=== PATIENT | female | born 1955 | race Caucasian/White ===

== ENCOUNTER 2022-05-17 11:48 | Emergency (ER) | payer OTHER, SELFPAY ==
[2022-05-17] VITALS (10 sets, daily range): BP systolic 104–122; BP diastolic 65–78; PULSE 68–84; RESP 11–21; O2SAT 96–100
--- NOTE | 2022-05-17 11:45 | DI.CT_ITS ---
Exam(s) CT HEAD CERVICAL SPINE WO EXAM: CT HEAD CERVICAL SPINE WO COMPARISON: No exams were available for comparison FINDINGS: CT examination of the cervical spine was performed without contrast administration. There are moderate degenerative changes of the cervical spine most marked at C4-5 and C5-6. There is no evidence of acute cervical spine fracture or dislocation. Intervertebral disc spaces are well maintained. Tracheolaryngeal structures appear intact. No cervical mass or adenopathy. Noncontrast cranial CT was performed. Ventricular system is normal in appearance. There may be slight cerebral atrophy. No evidence of acute intracranial hemorrhage, mass effect, or midline shift. No calvarial fracture. The orbital and temporal bone structures appear intact. Visualized mastoid air cells and paranasal sinuses appear clear. IMPRESSION: No evidence of acute cervical spine injury. No evidence of acute intracranial injury. RADIATION DOSE DELIVERED: 1,233.01mGy.cm Total DLP 1,233.01mGy.cm Total DLP !Error CTDIvol DATA REPOSITORY: All CT scans at this facility are submitted to the National Radiology Data Registry (NRDR) Dose Index Registry (DIR) with the [employer] (ACR). RADIATION OPTIMIZATION: All CT scans at this facility use at least one of these dose optimization te chniques: automated exposure control; mA and/or kV adjustment per patient size (includes targeted exa ms where dose is matched to clinical indication); or iterative reconstruction.
--- NOTE | 2022-05-17 11:45 | RT.EKG_ITS ---
APPROVED REPORT Exam: Resting ECG Reason for Exam: CHEST PAIN Patient Location: E HR:70 bpm ECG Measurements Heart Rate 70 AXIS OK 167 P 44 QRSd 80 QRS 41 QT 419 T 35 QTc 452 Conclusion Sinus rhythm...normal P axis, V-rate 60- 99
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
[2022-05-17 12:28] LABS: Abs Immature Grans 0.05 10^3/uL (0.0-0.06); Absolute Basophil Count 0.03 10^3/uL (0.0-0.2); Absolute Eosinophil Count 0.07 10^3/uL (0.0-0.7); Absolute Lymphocyte Count 3.08 10^3/uL (1.2-3.4); Absolute Monocyte Count 0.56 10^3/uL (0.1-0.8); Absolute Neutrophil Count 4.47 10^3/uL (1.2-6.7); Basophils % 0.4; Eosinophils % 0.8; HCT 35.4 % (36.0-46.0); HGB 11.7 g/dL (11.2-15.7); Immature Grans % 0.6; Lymphocytes % 37.3; MCH 32.9 pg (27.0-33.0); MCHC 33.1 % (32.0-36.0); MCV 99 fL (80-95); MPV 10.4 fL (8.0-11.0); Monocytes % 6.8; Neutrophils % 54.1; Platelet Count 222 10^3/uL (130-400); RBC 3.56 10^6/uL (3.93-5.22); RDW-SD 47.6 fL; WBC 8.26 10^3/uL (4.4-10.8)
[2022-05-17 12:46] LABS: ALT 193 U/L (14-59); AST 237 U/L (15-37); Albumin 3.5 g/dL (3.4-5.0); Alkaline Phosphatase 49 U/L (46-116); Anion Gap 8.9 mmol/L (3-11); BUN 19 mg/dL (7-18); Bilirubin, Total 0.3 mg/dL (0.2-1.0); CO2 27.1 mmol/L (21.0-32.0); CREATININE 0.8 mg/dL (0.55-1.02); Calcium 8.8 mg/dL (8.5-10.1); Chloride 104 mmol/L (98-107); Glucose 110 mg/dL (74-106); Lipase 170 U/L (73-393); Magnesium 1.9 mg/dL (1.8-2.4); Potassium 3.7 mmol/L (3.5-5.1); Sodium 140 mmol/L (136-145); Total Protein 7.2 g/dL (6.4-8.2); Troponin I < 50 ng/L (<or=60)
--- NOTE | 2022-05-17 13:25 | DI.CT_ITS ---
Exam(s) CT THORACIC LUMBAR SPINE WO CT CHEST/ABD/PEL W EXAM: CT CHEST/ABD/PEL W TECHNIQUE: CT examination of the chest, abdomen, and pelvis was performed with bolus infusion of 100 cc of Omnipaque 350. Additional CT reconstructions of the thoracic and lumbar spine were obtained with multi planar review ing. COMPARISON: CT CT THORACIC LUMBAR SPINE WO from 05/17/2022 FINDINGS: There is no evidence of a thoracic vascular injury. The lungs are predominantly clear with a 9 christi meter in diameter ground-glass nodule of the left upper lobe noted, 12 month follow-up would be recom mended if the patient is a smoker. No pneumothorax or pleural effusion. No mediastinal hematoma. No adenopathy in the chest. Tracheobronchial tree appears intact. The liver and pancreas appear normal. There are multiple splenic intermediate attenuation lesions, the largest measuring about 2 cm in diam eter. 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 If the patient has any prior prior studi es from outside institutions, the should be obtained for comparison period failing the availability o f comparison examinations, MR examination would be recommended with multi phasic postcontrast protoco l. Gallbladder and bile ducts are normal. Adrenals and kidneys are unremarkable. No evidence of urinary tract injury or obstruction. No abdominal or pelvic vascular injury seen. No abdominal or pelvic adenopathy. No significant abdomi nal wall hernia or hematoma. No evidence of bowel injury. No fracture identified in the region surveyed. Additional CT multiplanar reconstructions of the thoracic and lumbar spine show no evidence of fractu re. IMPRESSION: No evidence of acute injury of the chest, abdomen, or pelvis. Incidental finding of ground-glass left upper lobe pulmonary nodule, 9 millimeters mean diameter, fol low-up chest CT would be recommended in 12 months if the patient is a smoker. Incidental finding of multiple indeterminate splenic lesions, prior examination is requested for barrie avina. In the absence of prior examinations, multi phasic MRI of the spleen would be recommended fo r further characterization. Incidental Findings RADIATION DOSE DELIVERED: Total DLP Total DLP !Error CTDIvol DATA REPOSITORY: All CT scans at this facility are submitted to the National Radiology Data Registry (NRDR) Dose Index Registry (DIR) with the [employer] (ACR). RADIATION OPTIMIZATION: All CT scans at this facility use at least one of these dose optimization te chniques: automated exposure control; mA and/or kV adjustment per patient size (includes targeted exa ms where dose is matched to clinical indication); or iterative reconstruction.
[2022-05-17] MEDS: Omnipaque 350 MG/ML 100 ML BTL IJ (13:30)
== END 2022-05-17 14:07 | disposition home or self-care (01) ==
LOC: ER 14:14
PROVIDERS: Emergency Provider Registered Nurse Emergency
DX: S01.411A Laceration without foreign body of right cheek and temporomandibular area, initial encounter (principal); V59.40XA Driver of pick-up truck or van injured in collision with unspecified motor vehicles in traffic accident, initial encounter
CPT/HCPCS: 36415; 74177; 80053; 83690; 93005; 99285; 70450; 71260; 72125; 72128; 72131; 81003; 83735; 84484; 85025; 93010; J3490

== ENCOUNTER 2022-06-06 18:05 | Outpatient (REF) | payer OTHER, SELFPAY ==
[2022-06-06 20:48] LABS: ALT 28 U/L (14-59); AST 30 U/L (15-37); Albumin 3.7 g/dL (3.4-5.0); Alkaline Phosphatase 91 U/L (46-116); Anion Gap 9.4 mmol/L (3-11); BUN 22 mg/dL (7-18); Bilirubin, Total 0.1 mg/dL (0.2-1.0); CO2 26.6 mmol/L (21.0-32.0); CREATININE 0.9 mg/dL (0.55-1.02); Calcium 9.5 mg/dL (8.5-10.1); Chloride 103 mmol/L (98-107); Estimated GFR 70.07 (mL/min/1.73m2); Glucose 93 mg/dL (74-106); Potassium 4.1 mmol/L (3.5-5.1); Sodium 139 mmol/L (136-145); Total Protein 7.8 g/dL (6.4-8.2); Vitamin B12 543 pg/mL (193-986)
== END 2022-06-06 18:06 | disposition home or self-care (01) ==
LOC: NCHCN 18:05
PROVIDERS: Visit Provider Family Medicine
DX: R74.8 Abnormal levels of other serum enzymes (principal); D53.9 Nutritional anemia, unspecified
CPT/HCPCS: 80053; 82607

== ENCOUNTER 2022-07-15 09:58 | Emergency (ER) | payer OTHER, SELFPAY ==
[2022-07-15 10:04] VITALS: BP 118/63; PULSE 67; RESP 18; TEMP 36.5; O2SAT 99
--- NOTE | 2022-07-15 10:15 | DI.RAD_ITS ---
Exam(s) XR WRIST LT COMPLETE EXAM: XR WRIST LT COMPLETE CLINICAL HISTORY: fall/pain. TECHNIQUE: 2D digital imaging was performed. COMPARISON: No exams were available for comparison FINDINGS: 3 views On the lateral view there is an acute appearing nondisplaced fracture of the distal radius. No carpa l dislocation. Scaphoid unremarkable. Ulnar styloid unremarkable. No significant ulnar variance. IMPRESSION: There is an acute nondisplaced fracture of the distal radius. DATA REPOSITORY: RADIATION DOSE DELIVERED:
--- NOTE | 2022-07-15 10:49 | ED.GENADUL_ITS ---
Discharge Plan Disposition Patient Disposition: HOME Condition: Stable Discharge Details Clinical Impression: Left radial fracture Primary Care Provider: CARL GONZALES ED Provider: Wagner Damon Home Meds and New Rx's Prescriptions: Continued bupropion HCl 75 mg Tablet 75 mg PO DAILY fluoxetine 10 mg Capsule 10 mg PO DAILY cyclobenzaprine 10 mg tablet 10 mg PO TID PRN (Reason: muscle spasm) Qty: 10 0RF ibuprofen 200 mg Tablet 400 mg PO Q6H PRN Discharge Instructions Instructions: Arm Fracture in Adults (ED) Additional Instructions: Rest, elevate, cool compresses every 2 hours for 20 minutes. [id number] Tylenol and/or Motrin as directed for discomfort. Wear splint until reevaluation with orthopedics. I have placed you on the orthopedic list, please contact their office tomorrow to set up outpatient reevaluation. Watch for new or worsening symptoms and return to the ER for any concerns. Referrals: Orestes Zuluaga MD [ [facility] STAFF PHYSICIAN] - Medical Decision Making 67-year-old female who is right-hand dominant, not anticoagulated, presents to the ER reporting that she attempted to step over her dog barrier gait last night, tripped injuring her left wrist. She also reports that she struck the left side of her head but denies any LOC, headache, neck pain, nausea, vomiting, numbness, tingling, weakness. We discussed work-up. She is agreeable to a left wrist x-ray but she declines any imaging of her brain. X-ray of left wrist reveals a radial fracture. Wrist splinted appropriately. Placed on the orthopedic list to help expedite outpatient orthopedic follow-up Standard discharge and return precautions were provided. Patient understands, is agreeable to this plan, and has no additional questions or concerns upon discharge. This documentation was generated using [employer] system, please disregard any oddities of phrase or misspellings. Medical Records Medical records reviewed: Yes I reviewed the patient's medical records. Imaging Data Radiologic Study: Attestation: I personally reviewed and interpreted this imaging study as follows: Imaging: X-Ray Radiologist's impression: PROCEDURE INFORMATION: Exam: XR Left Wrist Exam date and time: 07/15/2022 11:31 AM Age: 67 years old Clinical indication: Other: Fall/pain TECHNIQUE: Imaging protocol: Radiologic exam of the Left wrist. Views: 3 or more views. COMPARISON: No relevant prior studies available. FINDINGS: Bones/joints: Acute nondisplaced fracture of distal radial metaphysis. No dislocation. Joint spaces are maintained. Soft tissues: Soft tissue swelling about the wrist. IMPRESSION: Acute nondisplaced fracture of distal radius. HPI General Mode of arrival: ambulatory . Date/Time Provider Initiated Documentation: 07/15/22 10:08 . Limitations to Documentation: no limitations . Information obtained by: patient . History of Present Illness 67 year old F presents to the emergency department with the chief complaint of L wrist pain, described as moderate, with intensity rated at 5. Quality is described as aching, and is localized to the left and upper extremity. Patient reports no radiation. Patient started experiencing this day(s) (1) and it has been constant. Immobilization improves symptom(s), Movement worsens symptoms . Patient notes other (struck head, denies injury). Patient did receive the following treatments prior to arrival, none Related Data Home Medications Medication Instructions Recorded Confirmed bupropion HCl 75 mg tablet 75 mg PO DAILY 05/17/22 07/15/22 cyclobenzaprine 10 mg tablet 10 mg PO TID PRN muscle spasm #10 05/17/22 07/15/22 tabs fluoxetine 10 mg capsule 10 mg PO DAILY 05/17/22 07/15/22 ibuprofen 200 mg tablet 400 mg PO Q6H PRN 07/15/22 07/15/22 Previous Rx's Medication Instructions Recorded cyclobenzaprine 10 mg tablet 10 mg PO TID PRN muscle spasm #10 05/17/22 tabs Allergies Allergy/AdvReac Type Severity Reaction Status Date / Time erythromycin base Allergy Unverified 07/15/22 10:08 [From Erythrocin] Sulfa (Sulfonamide Allergy Unverified 07/15/22 10:08 Antibiotics) General Stated Complaint: Orthopedic MELANIE: 4 Review of Systems Constitutional Constitutional: Denies headache(s) and Denies weakness Eyes Eyes: Denies change in vision ENT Ears, Nose, Mouth, and Throat: Denies headache(s) and Denies neck pain Musculoskeletal Musculoskeletal: Denies deformity, Reports arthralgias, Denies neck pain, Denies numbness, Reports stiffness and Denies tingling Neurologic Neurologic: Denies headache(s), Denies numbness, Denies tingling and Denies weakness PFSH All Active Problems (Updated 07/15/22 @ 12:02 by BRYAN Ramirez) Left radial fracture (Acute) Social History Smoking/Tobacco Use Status: Never Smoking risk assessment performed?: Yes Alcohol Intake: current Alcohol Intake frequency: a few times a week Alcohol type: wine Drug use: Socially Substance use type: marijuana Do you feel safe at home: Yes Do you feel safe in your relationship?: Yes Exam Const General: cooperative, healthy appearing, comfortable and no acute distress Orientation: alert, awake and oriented x3 HENMT Head: normocephalic Head images: 1. Ecchymosis. Skin is intact. No tenderness or crepitus General nose exam: external nose normal Mouth: moist mucous membranes Eyes General: appearance normal, both eyes and all related structures Alignment and Position: alignment normal Periorbital: periorbital findings normal Eyelids: eyelids normal Conjunctivae: conjunctivae normal Sclera: sclerae normal Cornea: corneas normal Pupils: PERRL EOM: EOM intact bilaterally Direct ophthalmoscopy: normal light reflex Neck Neck: normal visual inspection, full ROM, trachea midline, supple and nontender Resp Effort & Inspection: normal respiratory effort and able to speak in complete sentences Cardio Rate: regular rate Rhythm: regular rhythm Skin Lesions: no lesions Neuro General: patient alert, patient awake, moves all extremities and no focal motor deficits Cognition: normal cognition Speech: speech normal Gait: normal gait Motor: muscle tone normal throughout Sensory Exam: no sensory deficits noted Extrem General: full ROM and capillary refill normal Other: Left wrist with diffuse mild tenderness, worse over the radial aspect. Neuro, vascular, tendon intact. Skin intact. Normal radial pulse and capillary refill. Psych Appearance: grossly normal Mental Status: mental status grossly normal Course Vital Signs Vital signs: Vital Signs Temperature 36.5 C 07/15/22 10:04 Pulse 67 07/15/22 10:04 Respiratory Rate 18 07/15/22 10:04 Blood Pressure 118/63 07/15/22 10:04 Pulse Oximetry 99 07/15/22 10:04 Temperature 36.5 C 07/15/22 10:04 Temperature Source Tympanic 07/15/22 10:04 Pulse 67 07/15/22 10:04 Respiratory Rate 18 07/15/22 10:04 Respiratory Effort Non-Labored 07/15/22 10:06 Blood Pressure 118/63 07/15/22 10:04 Blood Pressure Position Sitting 07/15/22 10:04 Pulse Oximetry 99 07/15/22 10:04 Oxygen Delivery Method Ambu-Bag 07/15/22 10:04 Oxygen Flow Rate 0 07/15/22 10:04 Pain Level 6 07/15/22 10:09 Procedures Orthopedic Splinting/Casting Injury #1: Side: left Upper Extremity Injury Location: wrist Upper Extremity Immobilizer: wrist splint (Ortho-Glass) PAWSS Have you Been Recently Intoxicated or Drunk Within the Last 30 days?: No Have you Ever Experienced Previous Episodes of Alcohol Withdrawal?: No Have you ever Experienced Withdrawal Seizures?: No Have you ever Experienced Delirium Tremens(DT)s?: No Have you ever undergone Alcohol Rehabilitation Treatment (i.e, inpt ot outpatient treatment programs)?: No Have you ever Experienced Blackouts?: No Have you ever Combined Alcohol with other Downers within the last 90 days?: No Have you ever Combined Alcohol with any other Substance of Abuse during the last 90 days?: No Positive Blood Alcohol level on Presentation? [PCS.BAL]: No Evidence of Increased Autonomic Activity (i.e. HR>120, tremor, sweating, agitation, nausea)?: No Result: 0
--- NOTE | 2022-07-15 11:48 | DI.VRAD_ITS ---
PROCEDURE INFORMATION: Exam: XR Left Wrist Exam date and time: 07/15/2022 11:31 AM Age: 67 years old Clinical indication: Other: Fall/pain TECHNIQUE: Imaging protocol: Radiologic exam of the Left wrist. Views: 3 or more views. COMPARISON: No relevant prior studies available. FINDINGS: Bones/joints: Acute nondisplaced fracture of distal radial metaphysis. No dislocation. Joint spaces are maintained. Soft tissues: Soft tissue swelling about the wrist. IMPRESSION: Acute nondisplaced fracture of distal radius. Dictated and Authenticated by: Samia Dominguez MD. Ordering:FRANKO Edward MD
[2022-07-15 12:15] VITALS: BP 116/71; PULSE 68; RESP 10; O2SAT 100
== END 2022-07-15 12:22 | disposition home or self-care (01) ==
PROVIDERS: Emergency Provider Physician Assistant; PCP Nurse Practitioner Family
DX: S52.502A Unspecified fracture of the lower end of left radius, initial encounter for closed fracture (principal); S00.83XA Contusion of other part of head, initial encounter; W01.198A Fall on same level from slipping, tripping and stumbling with subsequent striking against other object, initial encounter
CPT/HCPCS: 29125; 99283; 73110; 99284

== ENCOUNTER 2022-07-21 11:11 | Emergency (ER) | payer OTHER, SELFPAY ==
[2022-07-21 11:30] VITALS: BP 130/80; PULSE 67; RESP 17; TEMP 36.9; O2SAT 100
--- NOTE | 2022-07-22 08:11 | ED.GENADUL_ITS ---
Discharge Plan Disposition Patient Disposition: HOME Condition: Good Discharge Details Chief Complaint: Recheck Clinical Impression: Aftercare for cast or splint check or change Primary Care Provider: CARL GONZALES ED Provider: Vladimir Hurley Home Meds and New Rx's Prescriptions: No Action bupropion HCl 75 mg Tablet 75 mg PO DAILY fluoxetine 10 mg Capsule 10 mg PO DAILY cyclobenzaprine 10 mg tablet 10 mg PO TID PRN (Reason: muscle spasm) Qty: 10 0RF ibuprofen 200 mg Tablet 400 mg PO Q6H PRN Discharge Data Discharge Date/Time-TO BE ENTERED AT DEPARTURE: 07/21/22 11:42 Medical Decision Making Patient presenting to the emergency department for chief complaint of splint irritation. Patient was splinted due to a wrist fracture and portions of the fiberglass splint has been irritating her skin. Patient denies any severe pain or discomfort, swelling, numbness or tingling. Physical exam is unremarkable and shows no signs of infection or other irritation but the fiberglass aspects of the splint are prominent. Splint was gently removed and slightly altered to provide further comfort before replacing the splint and Srinivasan bandage. Patient stated this resolved her symptoms. Patient to continue follow-up with orthopedics as previously arranged. After discussion of diagnosis and plan of care patient has no further needs, questions, or concerns and states clear understanding to return to the emergency department for any worsening symptoms. HPI General Mode of arrival: ambulatory . Date/Time Provider Initiated Documentation: 07/21/22 11:18 . Limitations to Documentation: no limitations . Information obtained by: RN notes reviewed and old records reviewed . History of Present Illness 67 year old F presents to the emergency department with the chief complaint of splint irratation , described as mild, Patient started experiencing this day(s) and it has been intermittent. Patient notes no other symptoms.. Related Data Home Medications Medication Instructions Recorded Confirmed bupropion HCl 75 mg tablet 75 mg PO DAILY 05/17/22 07/21/22 cyclobenzaprine 10 mg tablet 10 mg PO TID PRN muscle spasm #10 05/17/22 07/21/22 tabs fluoxetine 10 mg capsule 10 mg PO DAILY 05/17/22 07/21/22 ibuprofen 200 mg tablet 400 mg PO Q6H PRN 07/15/22 07/21/22 Previous Rx's Medication Instructions Recorded cyclobenzaprine 10 mg tablet 10 mg PO TID PRN muscle spasm #10 05/17/22 tabs Allergies Allergy/AdvReac Type Severity Reaction Status Date / Time erythromycin base Allergy Unverified 07/21/22 11:34 [From Erythrocin] Sulfa (Sulfonamide Allergy Unverified 07/21/22 11:34 Antibiotics) General Stated Complaint: Recheck MELANIE: 4 Review of Systems Narrative: 6 systems reviewed and unremarkable except what is marked below. Integumentary/Breasts Skin/Breast: Reports as per HPI, Denies erythema, Denies rash, Reports skin pain and Denies wounds PFSH All Active Problems (Updated 07/22/22 @ 08:18 by Vladimir Hurley NP) Left radial fracture (Acute) Aftercare for cast or splint check or change (Acute) Social History Smoking/Tobacco Use Status: Never Smoking risk assessment performed?: Yes Alcohol Intake: current Alcohol Intake frequency: a few times a week Alcohol type: wine Drug use: Socially Substance use type: marijuana Do you feel safe at home: Yes Do you feel safe in your relationship?: Yes Exam Const General: cooperative, no acute distress and not ill appearing Orientation: alert, awake and oriented x3 Resp Effort & Inspection: normal respiratory effort, able to speak in complete sentences and no respiratory distress Skin General skin exam: no rashes or lesions noted Neuro General: patient alert, patient awake, patient oriented x3, moves all extremities and no focal motor deficits Sensory Exam: no sensory deficits noted Course Vital Signs Vital signs: Vital Signs Temperature 36.9 C 07/21/22 11:30 Pulse 67 07/21/22 11:30 Respiratory Rate 17 07/21/22 11:30 Blood Pressure 130/80 07/21/22 11:30 Pulse Oximetry 100 07/21/22 11:30 Temperature 36.9 C 07/21/22 11:30 Temperature Source Temporal Artery Scan 07/21/22 11:30 Pulse 67 07/21/22 11:30 Respiratory Rate 17 07/21/22 11:30 Respiratory Effort Non-Labored 07/21/22 11:32 Blood Pressure 130/80 07/21/22 11:30 Blood Pressure Position Sitting 07/21/22 11:30 Pulse Oximetry 100 07/21/22 11:30 Oxygen Delivery Method Room Air 07/21/22 11:30 Oxygen Flow Rate 0 07/21/22 11:30 Pain Level 0 07/21/22 11:30 PAWSS Have you Been Recently Intoxicated or Drunk Within the Last 30 days?: No Have you Ever Experienced Previous Episodes of Alcohol Withdrawal?: No Have you ever Experienced Withdrawal Seizures?: No Have you ever Experienced Delirium Tremens(DT)s?: No Have you ever undergone Alcohol Rehabilitation Treatment (i.e, inpt ot outpatient treatment programs)?: No Have you ever Experienced Blackouts?: No Have you ever Combined Alcohol with other Downers within the last 90 days?: No Have you ever Combined Alcohol with any other Substance of Abuse during the last 90 days?: No Result: 0
== END 2022-07-21 11:42 | disposition home or self-care (01) ==
PROVIDERS: Emergency Provider Nurse Practitioner Family; PCP Nurse Practitioner Family
DX: S52.92XA Unspecified fracture of left forearm, initial encounter for closed fracture (principal); X58.XXXA Exposure to other specified factors, initial encounter
CPT/HCPCS: 99281

== ENCOUNTER 2022-07-31 11:00 | Outpatient (CLI) | payer OTHER, SELFPAY ==
--- NOTE | 2022-07-31 10:15 | DI.RAD_ITS ---
Exam(s) XR WRIST LT LIMITED EXAM: XR WRIST LT LIMITED CLINICAL HISTORY: left radial fx f/u. TECHNIQUE: 2D digital imaging was performed of the left wrist. Two images were obtained. PA and la teral views were obtained. COMPARISON: CR,XR XR WRIST LT COMPLETE from 07/15/2022 FINDINGS: BONES: There has been no change in alignment of the nondisplaced fracture of the distal metaphysis of the left radius. No new fractures identified. No bony destructive lesion is seen. JOINTS: The carpal bones are normally aligned. SOFT TISSUE: Normal. IMPRESSION: Stable distal radial fracture. DATA REPOSITORY: RADIATION DOSE DELIVERED:
== END 2022-07-31 11:01 | disposition home or self-care (01) ==
LOC: DIORS 11:00
PROVIDERS: PCP Nurse Practitioner Family; Referring Provider Nurse Practitioner Family; Visit Provider Student in an Organized Health Care Education/Training Program
DX: S52.92XD Unspecified fracture of left forearm, subsequent encounter for closed fracture with routine healing (principal); X58.XXXD Exposure to other specified factors, subsequent encounter
CPT/HCPCS: 73100

== ENCOUNTER 2022-08-15 15:26 | Emergency (ER) | payer OTHER, SELFPAY ==
[2022-08-15 15:31] VITALS: BP 103/69; PULSE 96; RESP 16; TEMP 36.9; O2SAT 99
--- NOTE | 2022-08-15 15:39 | ED.GENADUL_ITS ---
Discharge Plan Disposition Patient Disposition: Home Condition: Improving Discharge Details Clinical Impression: Dermatitis Primary Care Provider: CARL GONZALES ED Provider: René Taylor Home Meds and New Rx's Prescriptions: New prednisone 50 mg tablet 50 mg PO DAILY 5 Days Qty: 5 0RF amoxicillin-pot clavulanate 875-125 mg tablet 1 tab PO BID 10 Days Qty: 20 0RF Continued lamotrigine 25 mg tablet 25 mg PO TID bupropion HCl 75 mg Tablet 75 mg PO DAILY fluoxetine 10 mg Capsule 10 mg PO DAILY cyclobenzaprine 10 mg tablet 10 mg PO TID PRN (Reason: muscle spasm) Qty: 10 0RF ibuprofen 200 mg Tablet 400 mg PO Q6H PRN Discharge Instructions Instructions: Dermatitis (ED) Additional Instructions: May use Benadryl at bedtime for itching and to help with sleep. You may benefit from the antihistamine effects of smil-nxc-djeyjow famotidine/Pepcid 20 mg daily for 5 to 7 days. Apply a barrier cream to the area and avoid as much as possible the use of masks that tie behind the ear. Take Augmentin and prednisone as prescribed. Follow-up with regular doctor if not improving in 3 to 5 days time. Return to the ER for any acute concern. Medical Decision Making 67-year-old female with days of itchy and painful rash that started behind her right ear. She has had use of masks for work viral protection. Now has a cobbled, blanching erythematous rash on both sides of the neck. Likely allergic but cannot exclude a staph infection. We will treat with a course of Augmentin as well as a burst of prednisone. She may continue to use of antihistamine at home. She is counseled on indications to seek reevaluation in the ER. Sign Out No HPI General Mode of arrival: ambulatory . Date/Time Provider Initiated Documentation: 08/15/22 15:28 . Limitations to Documentation: no limitations . Information obtained by: patient . History of Present Illness 67 year old F presents to the emergency department with the chief complaint of Neck and ear rash, described as moderate, Quality is described as dull and constant, and is localized to the neck, left and right. Patient reports no radiation. Patient started experiencing this day(s) and it has been constant. No relieving factors improve symptom(s), No exacerbating factors reported . Patient notes denies fever/chills and malaise. Patient did receive the following treatments prior to arrival, none Related Data Home Medications Medication Instructions Recorded Confirmed bupropion HCl 75 mg tablet 75 mg PO DAILY 05/17/22 08/15/22 cyclobenzaprine 10 mg tablet 10 mg PO TID PRN muscle spasm #10 05/17/22 08/15/22 tabs fluoxetine 10 mg capsule 10 mg PO DAILY 05/17/22 08/15/22 ibuprofen 200 mg tablet 400 mg PO Q6H PRN 07/15/22 08/15/22 lamotrigine 25 mg tablet 25 mg PO TID 07/31/22 08/15/22 amoxicillin 875 mg-potassium 1 tab PO BID 10 days #20 tabs 08/15/22 clavulanate 125 mg tablet prednisone 50 mg tablet 50 mg PO DAILY 5 days #5 tabs 08/15/22 Previous Rx's Medication Instructions Recorded cyclobenzaprine 10 mg tablet 10 mg PO TID PRN muscle spasm #10 05/17/22 tabs amoxicillin 875 mg-potassium 1 tab PO BID 10 days #20 tabs 08/15/22 clavulanate 125 mg tablet prednisone 50 mg tablet 50 mg PO DAILY 5 days #5 tabs 08/15/22 Allergies Allergy/AdvReac Type Severity Reaction Status Date / Time erythromycin base Allergy Unverified 08/15/22 15:37 [From Erythrocin] Sulfa (Sulfonamide Allergy Unverified 08/15/22 15:37 Antibiotics) General Stated Complaint: RashLesion MELANIE: 4 Review of Systems Narrative: 6 systems reviewed and otherwise negative PFSH All Active Problems (Updated 08/15/22 @ 15:42 by eRné Taylor MD) Dermatitis (Acute) Aftercare for cast or splint check or change (Acute) Social History Smoking/Tobacco Use Status: Never Smoking risk assessment performed?: Yes Alcohol Intake: current Alcohol Intake frequency: a few times a week Alcohol type: wine Drug use: Socially Substance use type: marijuana Current gender identity: female Do you feel safe at home: Yes Do you feel safe in your relationship?: Yes Exam Narrative Exam Narrative: GEN: awake, alert, oriented 3. Pleasant, well groomed, interactive. HEAD: Normocephalic, atraumatic ENT: Mucous membranes moist, oropharynx unremarkable, External ear exam unremarkable EYES: PERRL, EOMI NECK: Full ROM, there is a slightly cobbled, raised, blanching erythematous rash extending primarily behind the right ear to both sides of the neck. There is no fluctuance or significant tenderness present. CHEST/RESP: Nontender, clear to auscultation bilateral, no wheeze/rhonchi/rales CARDIOVASCULAR: RRR, no murmur, rub marialuisa. 2+ Rad pulse bilateral EXT: Full ROM, no edema, no rash Neuro: Grossly normal neurologic exam, conversant, interactive. Psych: Speech fluent, thoughts congruent, affect normal Course Vital Signs Vital signs: Vital Signs Temperature 36.9 C 08/15/22 15:31 Pulse 96 H 08/15/22 15:31 Pulse Oximetry 99 08/15/22 15:31 Temperature 36.9 C 08/15/22 15:31 Temperature Source Skin 08/15/22 15:31 Pulse 96 H 08/15/22 15:31 Blood Pressure Position Sitting 08/15/22 15:31 Pulse Oximetry 99 08/15/22 15:31 Oxygen Delivery Method Room Air 08/15/22 15:31 Oxygen Flow Rate 0 08/15/22 15:31 Pain Level 7 08/15/22 15:31
== END 2022-08-15 15:48 | disposition home or self-care (01) ==
LOC: ER 15:43
PROVIDERS: Emergency Provider Emergency Medicine; PCP Nurse Practitioner Family
DX: L30.8 Other specified dermatitis (principal)
CPT/HCPCS: 99283

== ENCOUNTER 2023-01-03 16:36 | Outpatient (REF) | payer OTHER, MEDICARE, SELFPAY ==
[2023-01-03 16:22] LABS: Hemoglobin A1C 5.4 % (<5.7)
[2023-01-03 16:33] LABS: ALT 26 U/L (14-59); AST 28 U/L (15-37); Alkaline Phosphatase 55 U/L (46-116); Anion Gap 6.6 mmol/L (3-11); BUN 17 mg/dL (7-18); Bilirubin, Total 0.3 mg/dL (0.2-1.0); CO2 27.4 mmol/L (21.0-32.0); Chloride 105 mmol/L (98-107); Estimated GFR 61.75 (mL/min/1.73m2); Glucose 98 mg/dL (74-106); Potassium 3.9 mmol/L (3.5-5.1); Sodium 139 mmol/L (136-145); TSH (W/Ref FT4) 0.96 uIU/mL (0.36-3.74); Total Protein 8.2 g/dL (6.4-8.2)
[2023-01-03 17:15] LABS: Calcium 9.6 mg/dL (8.5-10.1); Ferritin 145 ng/mL (8-252); Folate 16.2 ng/mL (8.6-20.0)
[2023-01-03 17:49] LABS: Vitamin D 25 Total 30.1 ng/mL (30-100)
[2023-01-03 17:55] LABS: Vitamin B12 555 pg/mL (193-986)
== END 2023-01-03 16:37 | disposition home or self-care (01) ==
LOC: LBN 16:36
PROVIDERS: PCP Nurse Practitioner Family; Visit Provider Registered Nurse
DX: F33.9 Major depressive disorder, recurrent, unspecified (principal)
CPT/HCPCS: 80053; 82306; 82607; 82728; 82746; 83036; 83735; 84443

== ENCOUNTER → 2023-09-06 00:40 | Outpatient (CLI) | payer OTHER, SELFPAY ==
--- NOTE | 2023-09-06 08:15 | DI.MRI_ITS ---
Exam(s) MR BRAIN WO EXAM: MR BRAIN WO CLINICAL HISTORY: progressive cognitive changes,r41.89,cerebral aneurysm,i67.1 TECHNIQUE: Multiplanar multisequence MRI of the brain was performed. COMPARISON: CT CT HEAD CERVICAL SPINE WO from 05/17/2022 FINDINGS: VENTRICLES AND EXTRA AXIAL SPACES: Normal in size and morphology for the patient's age. MIDLINE SHIFT: None. CEREBRAL PARENCHYMA: No focus of restricted diffusion to suggest acute infarct. No space-occupying le sasha identified. No abnormal white matter lesions. HEMORRHAGE: None. BRAINSTEM/CEREBELLUM: Normal. VISUALIZED PARANASAL SINUSES/MASTOIDS:Clear. Vasculature: Normal flow void. Metallic coil in right internal carotid artery barely visible on thi s study. Normal flow-void through this area. PITUITARY GLAND: Unremarkable. ORBITS: Unremarkable. VISUALIZED PARANASAL SINUSES/MASTOIDS: Mucous retention cyst right maxillary sinus. IMPRESSION: Unremarkable MRI of the brain. DATA REPOSITORY:
--- NOTE | 2023-09-06 08:15 | DI.MRI_ITS ---
Exam(s) MR ANGIO BRAIN WO CLINICAL HISTORY: hx cerebral aneurysm s/p coiling,I67.1. TECHNIQUE: 3D [id number] study was performed without contrast. COMPARISON: MRI of the brain performed the same day. Head CT 17 May 2022 FINDINGS: Carotid Arteries: Petrous: Normal. Cavernous: Normal. Cerebral: Apparent narrowing in the supraclinoid portion of the right internal carotid artery. This is in the area the stent and aneurysm coil seen on prior CT. This may be secondary to metallic artif act. Normal flow void is seen in this area on MRI. Middle Cerebral Arteries: Right: No aneurysm or significant stenosis. Left: No aneurysm or significant stenosis. Anterior Cerebral Arteries: Right: No aneurysm or significant stenosis. Left: No aneurysm or significant stenosis. Posterior cerebral arteries: Right: No aneurysm or significant stenosis Left: No aneurysm or significant stenosis Vertebral Arteries: Right: No aneurysm or significant stenosis. No dissection. Left: No aneurysm or significant stenosis. No dissection.. Basilar Artery: No aneurysm or significant stenosis. Small Vessels: No evidence of beading. IMPRESSION: Apparent narrowing in the supraclinoid right internal carotid artery however this is in the region of the stent and aneurysm coiling is likely secondary to metallic artifact. DATA REPOSITORY:
== END ==
PROVIDERS: PCP Nurse Practitioner Family; Visit Provider Nurse Practitioner Adult Health
DX: R41.89 Other symptoms and signs involving cognitive functions and awareness (principal); I67.1 Cerebral aneurysm, nonruptured
CPT/HCPCS: 70544; 70551

== ENCOUNTER → 2023-09-13 00:55 | Outpatient (CLI) | payer OTHER, SELFPAY ==
--- NOTE | 2023-09-13 | DI.MRI_ITS ---
Exam(s) MR ABDOMEN WO/W EXAM: MR ABDOMEN WO/W CLINICAL HISTORY: F/U SPLENIC LESIONS ON CT 2021,d73.89 TECHNIQUE: Multiplanar multisequence MRI of the Abdomen was performed. CONTRAST MATERIAL: IV Contrast: 11 mL of Dotarem contrast administered. COMPARISON: CT CT CHEST/ABD/PEL W from 05/17/[address] THORACIC LUMBAR SPINE WO from 05/17/2022 FINDINGS: Liver: Unremarkable. No evidence of a hepatic mass. The liver is normal in size. Pancreas: Unremarkable. Gallbladder and Bile Ducts: No evidence of cholelithiasis. No biliary ductal dilatation. Adrenals: Unremarkable. Kidneys: There is no evidence of a solid renal mass. There are 2 tiny hyperintense foci in the left kidney consistent with cyst. No obstructive uropathy. Spleen: There are several T2 hyperintense lesions in the spleen. The largest is in the inferior pole and measures 1.8 cm. These correspond to the lesion seen on the CT scan from 05/17/2022. The gradien t images show evidence of prior hemorrhage. Following contrast administration, there is progressive enhancement of the lesion. The findings are consistent with hemangiomas. Bowel: The bowel shows no evidence of obstruction or wall thickening. The stomach is incompletely di stended but grossly unremarkable. Aorta: Unremarkable. Soft Tissues: Unremarkable. Bone: Unremarkable. Lymph Nodes: Unremarkable. IMPRESSION: Multiple splenic hemangiomas. DATA REPOSITORY:
[2023-09-13 08:22] LABS: CREATININE 1.2 mg/dL (0.55-1.02); Estimated GFR 49.31 (mL/min/1.73m2)
[2023-09-13] MEDS: Normal Saline - Diluent 50 ML VIAL 25 ML IJ (08:54)
[2023-09-13] MEDS: Gadoterate meglumine 20 ML VIAL 11 ML IVP (08:55)
== END ==
PROVIDERS: PCP Nurse Practitioner Family; Visit Provider Nurse Practitioner Family
DX: D18.03 Hemangioma of intra-abdominal structures (principal)
CPT/HCPCS: 74183; 82565

== ENCOUNTER → 2023-09-13 11:11 | Outpatient (CLI) | payer OTHER, SELFPAY ==
--- NOTE | 2023-09-06 | DI.MAMMO_ITS ---
Exam(s) MAMMO SCREENING EXAM: MAMMO SCREENING CLINICAL HISTORY: SCREENING, Z12.39 TECHNIQUE: Mammograms were interpreted according to the usual protocol including computer analysis w [employer] CAD system, tomosynthesis and C-view imaging. COMPARISON: No exams were available for comparison FINDINGS: The breasts are composed of scattered fibroglandular densities, Breast Density category B. No suspicious masses or suspicious microcalcifications are seen. No skin thickening or abnormal axillary lymph nodes are seen. There has been no significant change from prior exams. IMPRESSION: BI-RADS Category 1, Negative mammogram Yearly screening mammography is recommended. Breast Density - Category B, scattered fibroglandular densities. A negative radiographic report should not delay biopsy if a dominant or clinically suspicious mass is present. Up to ten percent of cancers are not identified on mammography. A negative report may reinforce clinical impression. Adenosis and dense breasts may obscure an underlying neoplasm. False positive reports average 6 to 10%. Patient will receive a letter notifying them of these results.
== END ==
PROVIDERS: PCP Nurse Practitioner Family; Visit Provider Nurse Practitioner Family
DX: I67.1 Cerebral aneurysm, nonruptured (principal)
CPT/HCPCS: 77063; 77067

== ENCOUNTER 2023-12-31 13:25 | Outpatient (REF) | payer OTHER, SELFPAY ==
[2023-12-31 15:51] LABS: BUN 15 mg/dL (7-18); CREATININE 0.9 mg/dL (0.55-1.02); Estimated GFR 69.64 (mL/min/1.73m2)
== END 2023-12-31 13:26 | disposition home or self-care (01) ==
LOC: NCHCN 13:25
PROVIDERS: PCP Nurse Practitioner Family; Visit Provider Nurse Practitioner Family
DX: F33.9 Major depressive disorder, recurrent, unspecified (principal); Z79.899 Other long term (current) drug therapy; Z51.81 Encounter for therapeutic drug level monitoring
CPT/HCPCS: 84520; 82565

== ENCOUNTER 2024-10-15 12:18 | Outpatient (REF) | payer OTHER, SELFPAY ==
[2024-10-15 15:15] LABS: HCT 35.6 % (36.0-46.0); HGB 12.2 g/dL (11.2-15.7); MCH 34.1 pg (27.0-33.0); MCHC 34.3 % (32.0-36.0); MCV 99 fL (80-95); MPV 10.3 fL (8.0-11.0); Platelet Count 260 10^3/uL (130-400); RBC 3.58 10^6/uL (3.93-5.22); RDW 12.7 % (11.7-14.6); RDW-SD 47.3 fL; WBC 6.51 10^3/uL (4.4-10.8)
[2024-10-15 15:41] LABS: ALT 22 U/L (14-59); AST 21 U/L (15-37); Albumin 4.2 g/dL (3.4-5.0); Alkaline Phosphatase 49 U/L (46-116); Anion Gap 10.9 mmol/L (3-11); BUN 21 mg/dL (7-18); Bilirubin, Total 0.37 mg/dL (0.2-1.0); CO2 26.1 mmol/L (21.0-32.0); CREATININE 1.2 mg/dL (0.55-1.02); Chloride 104 mmol/L (98-107); Glucose 105 mg/dL (74-106); Potassium 4.2 mmol/L (3.5-5.1); Sodium 141 mmol/L (136-145); Total Protein 7.8 g/dL (6.4-8.2)
== END 2024-10-15 12:19 | disposition home or self-care (01) ==
LOC: NCHCN 12:18
PROVIDERS: PCP Nurse Practitioner Family; Visit Provider Nurse Practitioner Family
DX: F33.9 Major depressive disorder, recurrent, unspecified (principal)
CPT/HCPCS: 80053; 85027

== ENCOUNTER 2024-11-20 00:26 | Outpatient (CLI) | payer OTHER, SELFPAY ==
--- NOTE | 2024-11-20 09:00 | DI.MAMMO_ITS ---
Exam(s) MG MAMMO SCREENING EXAM: MG MAMMO SCREENING MG MAMMO SCREENING the 1 year: In in the CLINICAL HISTORY: SCREENING MAMMO Z12.31 TECHNIQUE: Mammograms were interpreted according to the usual protocol including computer analysis w [employer] CAD system, tomosynthesis and C-view imaging. COMPARISON: 2022 FINDINGS: The breasts are composed of scattered fibroglandular densities, Breast Density category B. No suspicious masses or suspicious microcalcifications are seen. No skin thickening or abnormal axillary lymph nodes are seen. There has been no significant change from prior exams. IMPRESSION: BI-RADS Category 1, Negative mammogram Yearly screening mammography is recommended. Breast Density - Category B, scattered fibroglandular densities. A negative radiographic report should not delay biopsy if a dominant or clinically suspicious mass is present. Up to ten percent of cancers are not identified on mammography. A negative report may reinforce clinical impression. Adenosis and dense breasts may obscure an underlying neoplasm. False positive reports average 6 to 10%. Patient will receive a letter notifying them of these results.
== END 2024-11-20 00:46 ==
LOC: DI 00:26
PROVIDERS: PCP Nurse Practitioner Family; Visit Provider Nurse Practitioner Family
DX: Z12.31 Encounter for screening mammogram for malignant neoplasm of breast (principal); R92.323 Mammographic fibroglandular density, bilateral breasts
CPT/HCPCS: 77063; 77067

== ENCOUNTER 2025-02-08 12:38 | Outpatient (REF) | payer OTHER, SELFPAY ==
[2025-02-08 16:40] LABS: HGB 12.1 g/dL (11.2-15.7); MCH 33.6 pg (27.0-33.0); MCHC 33.6 % (32.0-36.0); MCV 100 fL (80-95); MPV 10.5 fL (8.0-11.0); Platelet Count 252 10^3/uL (130-400); RDW 12.9 % (11.7-14.6); RDW-SD 47.7 fL; WBC 6.99 10^3/uL (4.4-10.8)
[2025-02-08 16:53] LABS: ALT 24 U/L (14-59); AST 29 U/L (15-37); Albumin 4.1 g/dL (3.4-5.0); Alkaline Phosphatase 52 U/L (46-116); Anion Gap 10.1 mmol/L (3-11); BUN 20 mg/dL (7-18); Bilirubin, Total 0.4 mg/dL (0.2-1.0); CO2 23.9 mmol/L (21.0-32.0); Calculated LDL 126 mg/dL (<100); Chloride 104 mmol/L (98-107); Cholesterol 246 mg/dL (<200); Estimated GFR 60.98 (mL/min/1.73m2); Glucose 91 mg/dL (74-106); HDL Cholesterol 106 mg/dL (>or=50); Potassium 4.2 mmol/L (3.5-5.1); Sodium 138 mmol/L (136-145); Triglyceride 72 mg/dL (<150)
[2025-02-08 17:25] LABS: Hemoglobin A1C 5.1 % (<5.7)
== END 2025-02-08 12:39 | disposition home or self-care (01) ==
LOC: NCHCN 12:38
PROVIDERS: PCP Nurse Practitioner Family; Visit Provider Nurse Practitioner Family
DX: Z00.00 Encounter for general adult medical examination without abnormal findings (principal)
CPT/HCPCS: 80053; 80061; 85027; 83036